=== PATIENT | male | born 1940 | race Caucasian/White ===

== ENCOUNTER → 2016-07-06 | Outpatient (CLI) | payer MEDICARE, OTHER ==
[~2016-07-06] MED LIST: /MOXI40TA; /PANT40TA; /WARF25TA; ACET500C; ADVI200T PO; ALDA25TA PO; ALEV220C2 PO; BACT800T5 PO; CENTTAB47 PO; CIPR500T89 PO; COLA100C2; DYAZ37.5; FISH120012 PO; IBUP200C PO; NAPR220C PO; OXYC-517 PO; PERC5TAB8; PROT1TAB2 PO; ROXI1TAB2 PO; SENO8.6T10 PO; TRIC145T19; TYLE650T25 PO; VALS1TAB47 PO; VALS80CA
--- NOTE | 2016-07-06 10:01 | REP ---
CT CHEST WITHOUT CONTRAST: 07/06/2016 INDICATION: Cough. COMPARISON: PA and lateral chest 05/09/2016 at [facility], CT abdomen and pelvis 09/13/2015 which includes a small portion of the lung bases in field of view. Compared to CT abdomen and pelvis 08/02/2014. TECHNIQUE: 3 mm spiral axial sections performed through the chest without contrast. FINDINGS: The thoracic aorta is without aneurysm. There are a few small nonspecific mediastinal and hilar nodes. There is moderate elevation of the right hemidiaphragm with mild progression. Soft tissue 13 x 10 mm opacity within the inferior aspect of the right middle lobe, image 56, series 201 represents interval change. This could represent scarring versus developing pulmonary nodule. Small amount of atelectatic changes are seen within the right lower lobe. There are no pleural effusions or lung consolidation. There is a 5 mm hypodense focus within the posterior dome right lobe of liver, image 62, series 202 and is unchanged. The visualized portions of the spleen, pancreas within normal limits. The gallbladder is partially contracted, without stones, wall thickening or biliary dilatation. The right adrenal is normal. Postsurgical changes are seen within the region of the left adrenal and the left renal fossa consistent with prior nephrectomy for renal cancer. There is ectasia within the abdominal aorta measuring 2.6 cm AP by 2.5 cm transverse dimension. Postsurgical changes consistent with prior wedge resection seen within the superolateral right kidney at the site of a previous complex nodule. The visualized portions of the stomach, small bowel and colon within normal limits. There are no lytic or blastic lesions of bone. IMPRESSION: 1. Prior left nephrectomy as well as wedge resection of the right kidney for renal lesion.Pt. has history renal cell cancer. 2. Stable 5 mm hypodense focus within the posterior right dome of liver, image 63, series, 202. Interval followup is recommended. 3. 13 x 10 mm irregular opacity in medial aspect right middle lobe,. Ddx ncludes atelectasis/ scarring or developing nodule. Recommend follow up CT chest in 3 months . MTDD
== END ==
LOC: M RAD 08:47
PROVIDERS: ATTEND Physician Assistant Medical
DX: R05 Cough (principal); R93.8 Abnormal findings on diagnostic imaging of other specified body structures

== ENCOUNTER → 2016-08-10 | Outpatient (CLI) | payer MEDICARE, OTHER ==
--- NOTE | 2016-08-10 14:19 | REP ---
CHEST FLUOROSCOPY SNIFF TEST: 08/10/2016. Clinical history: Elevated right diaphragm. Fluoroscopic evaluation of the diaphragm movement performed. The patient was upright with AP fluoroscopy. There is appropriate movement of the left diaphragm. The right diaphragm is elevated but did not move with inspiration or expiration. There was no paradoxical movement of that elevated right diaphragm. Fluoroscopy time 24 seconds. Signed by Elvin Dorman MD 08/10/2016 05:21 P
== END ==
LOC: M RAD 12:32
PROVIDERS: ATTEND Internal Medicine Pulmonary Disease
DX: R91.8 Other nonspecific abnormal finding of lung field (principal); J98.6 Disorders of diaphragm

== ENCOUNTER → 2016-10-10 | Outpatient (CLI) | payer MEDICARE, OTHER ==
--- NOTE | 2016-10-10 13:05 | REP ---
CT of the chest without IV contrast for follow up of right middle lobe nodule: Comparisons are the chest CT dated 07/06/[address] of the abdomen and pelvis dated 08/02/2014. On 07/06/[address] there was a nodule with irregular margins in the medial segment right middle lobe. On the study today this nodule is no longer present, compatible with transient atelectasis. There are no other lung nodules or masses. There are no infiltrates or effusions. There is no mediastinal adenopathy. No axillary adenopathy. In the absence of IV contrast the study is insensitive for hilar adenopathy. The unenhanced thoracic aorta is unremarkable. Cardiac size normal. There is no pericardial effusion. In the upper abdomen there was a 5 mm hypodense nodule posteriorly in the dome of the liver on both prior studies. The nodule today is isodense with the hepatic parenchyma and cannot be identified. Impression: The right middle lobe lung nodule identified 07/06/2016 is no longer present, compatible with transient atelectasis. The previous hypodense 5 mm nodule in the dome of the liver on the prior studies cannot be identified today and is isodense with the hepatic parenchyma. Signed by Jj Vides MD 10/10/2016 12:56 P
== END ==
LOC: M RAD 10:24
PROVIDERS: ATTEND Physician Assistant Medical
DX: R05 Cough (principal)

== ENCOUNTER 2016-10-31 08:52 | Emergency (ER) | payer MEDICARE, OTHER ==
[~2016-10-31] VITALS: Ht 170.2 cm; Wt 64.4 kg
[2016-10-31] MEDS ORDERED: ACETAMINOPHEN 325 MG TAB PO ONE (10:00)
--- NOTE | 2016-10-31 10:24 | REP ---
Clinical: Trauma. Technique: Frontal view of the chest with multiple views of the left hemithorax. Findings: Frontal view of the chest demonstrates no acute cardiopulmonary process. Multiple views of the left hemithorax demonstrates no obvious acute rib fracture or pathology. Impression: Normal left rib series. No obvious acute rib fracture identified. Signed by Adam Medrano MD 10/31/2016 10:16 A
[2016-10-31 10:44] VITALS: BP 128/79
== END 2016-10-31 10:44 | disposition home or self-care (01) ==
LOC: M ED 10:09
DX: S20.212A Contusion of left front wall of thorax, initial encounter (principal); V03.00XA Pedestrian on foot injured in collision with car, pick-up truck or van in nontraffic accident, initial encounter; Y92.89 Other specified places as the place of occurrence of the external cause; Y93.89 Activity, other specified; Y99.8 Other external cause status; Z79.899 Other long term (current) drug therapy; Z88.1 Allergy status to other antibiotic agents

== ENCOUNTER → 2017-07-31 | Outpatient (CLI) | payer MEDICARE, OTHER | LOC: M WUC 13:51 | DX: R05 Cough (principal); J11.1 Influenza due to unidentified influenza virus with other respiratory manifestations | CPT/HCPCS: 71046 ==

== ENCOUNTER → 2017-10-01 | Outpatient (CLI) | payer MEDICARE, OTHER ==
[2017-10-01 19:06] LABS: APPEARANCE, URINE CLEAR (CLEAR); BACTERIA, URINE AUTO NEGATIVE (NEGATIVE); BILIRUBIN, URINE AUTO NEGATIVE (NEGATIVE); BLOOD, URINE BLOOD NEGATIVE (NEGATIVE); COLOR, URINE YELLOW (YELLOW); GLUCOSE, URINE (UA) AUTO NEGATIVE (NEGATIVE); KETONE, URINE AUTO NEGATIVE (NEGATIVE); LEUKOCYTE ESTERASE, URINE AUTO TRACE (NEGATIVE); NITRITE, URINE AUTO NEGATIVE (NEGATIVE); PROTEIN, URINE AUTO NEGATIVE (NEGATIVE); RBC, URINE AUTO 0 /HPF (0-3); SPECIFIC GRAVITY URINE AUTO 1.023 (1.002-1.035); SQUAMOUS EPITHELIAL CELL UR AU 0 /HPF (0-6); UROBILINOGEN, URINE AUTO 0.2 mg/dL (0.0-2.0); WBC, URINE AUTO 1 /HPF (0-3)
[2017-10-04 00:07] LABS: PSA TOTAL 3.7 ng/mL (0.0-4.0)
== END ==
LOC: M SMT 11:55
DX: C64.9 Malignant neoplasm of unspecified kidney, except renal pelvis (principal); Z12.5 Encounter for screening for malignant neoplasm of prostate
CPT/HCPCS: 84154

== ENCOUNTER → 2017-10-02 | Outpatient (CLI) | payer MEDICARE, OTHER | LOC: M RAD 17:11 | DX: C64.2 Malignant neoplasm of left kidney, except renal pelvis (principal); C64.1 Malignant neoplasm of right kidney, except renal pelvis; K57.30 Diverticulosis of large intestine without perforation or abscess without bleeding; J98.4 Other disorders of lung; R05 Cough; R06.2 Wheezing; Z90.5 Acquired absence of kidney | CPT/HCPCS: 71250 ==

== ENCOUNTER → 2017-10-15 | Outpatient (CLI) | payer MEDICARE, OTHER ==
[~2017-10-15] MED LIST changes: -/MOXI40TA; -/PANT40TA; -/WARF25TA; -ACET500C; -ADVI200T PO; -ALDA25TA PO; -ALEV220C2 PO; -BACT800T5 PO; -CENTTAB47 PO; -CIPR500T89 PO; -COLA100C2; -DYAZ37.5; -FISH120012 PO; -IBUP200C PO; +ISOVUE-370 76% 100ML VIAL (Q9967) As Ordered; -NAPR220C PO; -OXYC-517 PO; -PERC5TAB8; -PROT1TAB2 PO; -ROXI1TAB2 PO; -SENO8.6T10 PO; -TRIC145T19; -TYLE650T25 PO; -VALS1TAB47 PO; -VALS80CA
== END ==
LOC: M RAD 09:12
DX: C64.1 Malignant neoplasm of right kidney, except renal pelvis (principal); C64.2 Malignant neoplasm of left kidney, except renal pelvis; R93.41 Abnormal radiologic findings on diagnostic imaging of renal pelvis, ureter, or bladder
CPT/HCPCS: Q9967

== ENCOUNTER → 2017-10-16 | Outpatient (CLI) | payer MEDICARE, OTHER | LOC: M RAD 13:56 | DX: J98.6 Disorders of diaphragm (principal) | CPT/HCPCS: 76000 ==

== ENCOUNTER → 2017-10-28 | Outpatient (CLI) | payer MEDICARE, OTHER | LOC: M WUC 11:13 | DX: J44.1 Chronic obstructive pulmonary disease with (acute) exacerbation (principal) | CPT/HCPCS: 71046 ==

== ENCOUNTER → 2017-11-27 | Outpatient (REF) | payer MEDICARE, OTHER | LOC: M SFHCPLAZ 17:11 | DX: J47.1 Bronchiectasis with (acute) exacerbation (principal) | CPT/HCPCS: 87205 ==

== ENCOUNTER → 2017-12-13 | Outpatient (REF) | payer MEDICARE, OTHER | LOC: M SFHCPLAZ 09:03 | DX: E78.5 Hyperlipidemia, unspecified (principal); R73.01 Impaired fasting glucose ==

== ENCOUNTER → 2018-01-20 | Outpatient (CLI) | payer MEDICARE, OTHER | LOC: M WUC 09:36 | DX: R05 Cough (principal); J44.9 Chronic obstructive pulmonary disease, unspecified | CPT/HCPCS: 71046 ==

== ENCOUNTER → 2018-07-01 | Outpatient (CLI) | payer MEDICARE, OTHER ==
[~2018-07-01] MED LIST changes: +/MOXI40TA; +/PANT40TA; +/WARF25TA; +ACET500C; +ADVI200T PO; +ALEV220C2 PO; +BACT800T5 PO; +CENTTAB47 PO; +CIPR-249 PO; +COLA100C2; +DYAZ37.5; +FISH120012 PO; +IBUP200C25 PO; -ISOVUE-370 76% 100ML VIAL (Q9967) As Ordered; +NAPR220C PO; +OXYC-517 PO; +PERC5TAB8; +PROT1TAB2 PO; +ROXI1TAB2 PO; +SENO8.6T10 PO; +SPIR1TAB34 PO; +TRIC145T19; +TYLE650T25 PO; +VALS1TAB47 PO; +VALS80CA
--- NOTE | 2018-07-01 14:57 | REP ---
Chest two views HISTORY: Diaphragm disorder Comparison: 01/20/2018 There is elevation of the right hemidiaphragm. Linear densities are present in the lower lobes consistent with atelectasis or scar. The heart is normal in size. The pulmonary vasculature is normal in appearance. The bony structure is intact. There is an old compression fracture of a lower thoracic vertebral body. IMPRESSION: Bibasilar atelectasis or scar. Electronically Signed by Dorian Cates MD 07/01/2018 02:48 P
== END ==
LOC: M SMT 11:28
PROVIDERS: ATTEND Internal Medicine Pulmonary Disease
DX: J98.6 Disorders of diaphragm (principal)

== ENCOUNTER 2018-07-26 10:48 | Emergency (ER) | payer MEDICARE, OTHER ==
[~2018-07-26] VITALS: Ht 170.2 cm; Wt 63.6 kg
[2018-07-26 10:49] VITALS: BP 147/85
[2018-07-26] MEDS ORDERED: LOSA50TA88 (10:54)
[2018-07-26] MEDS ORDERED: PRAV20TA2 (10:54)
--- NOTE | 2018-07-26 11:45 | REP ---
UNILATERAL LEFT RIBS, PA CHEST, FIVE VIEWS: HISTORY: Trauma. COMPARISON: 07/01/2018. There is elevation of the right hemidiaphragm. Linear densities are present in the right lower lobe consistent with atelectasis or scar. The left lung is clear. The bony structure is intact. IMPRESSION: Right lower lobe atelectasis or scar. Electronically Signed by Dorian Cates MD 07/26/2018 11:47 A
== END 2018-07-26 11:48 | disposition home or self-care (01) ==
LOC: M ED 10:48
DX: S23.41XA Sprain of ribs, initial encounter (principal); W01.0XXA Fall on same level from slipping, tripping and stumbling without subsequent striking against object, initial encounter; Y92.9 Unspecified place or not applicable; Y93.9 Activity, unspecified; Y99.9 Unspecified external cause status; K21.9 Gastro-esophageal reflux disease without esophagitis; I10 Essential (primary) hypertension; Z79.899 Other long term (current) drug therapy; Z88.1 Allergy status to other antibiotic agents

== ENCOUNTER → 2018-10-09 | Outpatient (REF) | payer MEDICARE, OTHER ==
[~2018-10-09] MED LIST changes: -/MOXI40TA; -/PANT40TA; -/WARF25TA; +AVEL1TAB2; +COUM1TAB18; +LOSA50TA88; +PRAV20TA2; +PROT1TAB2; -VALS1TAB47 PO; +VALS1TAB67 PO
[2018-10-09 13:29] LABS: HEMATOCRIT 38.6 % (42.0-52.0); HEMOGLOBIN 12.9 g/dl (13.5-17.5); MEAN CORPUSCULAR HEMOGLOBIN 29.7 pg (27.0-33.0); MEAN CORPUSCULAR HGB CONC 33.4 g/dl (32.0-36.5); MEAN CORPUSCULAR VOLUME 88.9 fl (80.0-96.0); PLATELET COUNT, AUTOMATED 420 10^3/uL (150-450); RED BLOOD COUNT 4.34 10^6/uL (4.30-6.10); WHITE BLOOD COUNT 17.5 10^3/uL (4.0-10.0)
[2018-10-09 13:59] LABS: ALBUMIN 3.4 GM/DL (3.2-5.2); ALT/SGPT 48 U/L (12-78); BILIRUBIN,TOTAL 0.7 MG/DL (0.2-1.0); BLOOD UREA NITROGEN 38 MG/DL (7-18); CALCIUM LEVEL 8.6 MG/DL (8.8-10.2); CARBON DIOXIDE LEVEL 20 MEQ/L (21-32); CHLORIDE LEVEL 105 MEQ/L (98-107); CHOLESTEROL LEVEL 178 MG/DL (<200); CHOLESTEROL RISK RATIO 3.632 (<5); CREATININE FOR GFR 1.52 MG/DL (0.70-1.30); GLOMERULAR FILTRATION RATE 47.2 (>35); GLUCOSE, FASTING 104 MG/DL (70-100); HDL CHOLESTEROL 49 MG/DL (>40); MAGNESIUM LEVEL 2.2 MG/DL (1.8-2.4); NON-HDL-C 129 MG/DL; POTASSIUM SERUM 4.3 MEQ/L (3.5-5.1); PTH INTACT 88.1 PG/ML (18.5-88.0); SODIUM LEVEL 137 MEQ/L (136-145); TOTAL 25(OH) VITAMIN D 22.4 NG/ML (30.0-100.0); TOTAL PROTEIN 6.9 GM/DL (6.4-8.2); TRIGLYCERIDES LEVEL 446 MG/DL (<150)
[2018-10-09 14:41] LABS: LYMPHOCYTES 9 % (16-52); METAMYELOCYTES 2 % (0-0); MONOCYTES 6 % (0-8); MYELOCYTES 2 % (0-0); NEUTROPHILS 80 % (35-75)
[2018-10-09 14:42] LABS: PLATELET ESTIMATE NORMAL (NORMAL)
[2018-10-09 14:44] LABS: ANISOCYTOSIS 1+
[2018-10-09 15:46] LABS: HEMOGLOBIN A1c 6.3 %
== END ==
LOC: M SFHCPLAZ 11:17
PROVIDERS: ATTEND Nurse Practitioner Family
DX: R73.01 Impaired fasting glucose (principal); I10 Essential (primary) hypertension; E78.5 Hyperlipidemia, unspecified; Z12.5 Encounter for screening for malignant neoplasm of prostate; E55.9 Vitamin D deficiency, unspecified
CPT/HCPCS: 36415; 80053; 80061; 82306; 83036; 83525; 83735; 83970; 85025; G0103; G0463

== ENCOUNTER → 2018-10-28 | Outpatient (REF) | payer MEDICARE, OTHER | LOC: M LAB REF 16:29 | PROVIDERS: ATTEND Physician Assistant | DX: R35.0 Frequency of micturition (principal) ==

== ENCOUNTER → 2019-12-12 | Outpatient (CLI) | payer MEDICARE, OTHER ==
--- NOTE | 2019-12-12 10:32 | REP ---
CHEST X-RAY: TWO VIEWS. HISTORY: Stage III chronic kidney disease. Comparison chest radiograph is from July 26, 2018. FINDINGS: There is moderate elevation of the right hemidiaphragm, unchanged. The lungs are well inflated and clear. The pleural angles are sharp. Heart size is normal. There are degenerative changes in the thoracic spine, and there is mild wedging in two vertebral body levels, one in the upper thoracic spine and the other in the lower thoracic spine. These are unchanged from comparison radiographs January 20, 2018. IMPRESSION: Chronic elevation right hemidiaphragm. Otherwise no active cardiopulmonary disease. Electronically Signed by John Solis MD 12/12/2019 11:03 A
== END ==
LOC: M RAD 08:43
PROVIDERS: ATTEND Nurse Practitioner Women's Health
DX: N18.3 Chronic kidney disease, stage 3 (moderate) (principal); Z85.528 Personal history of other malignant neoplasm of kidney; M51.34 Other intervertebral disc degeneration, thoracic region

== ENCOUNTER → 2019-12-16 | Outpatient (CLI) | payer MEDICARE, OTHER ==
--- NOTE | 2019-12-16 11:11 | REP ---
Clinical: Bronchitis. Technique: PA and lateral. Comparison: 12/12/2019. Findings: Chronic elevation to the right hemidiaphragm again noted. Lung casanova are clear and without focal consolidation, effusion, or pneumothorax. Mediastinum and cardiac silhouette are normal. Skeletal structures are stable. Impression: Stable chronic changes. No acute cardiopulmonary process. Electronically Signed by Adam Medrano MD 12/16/2019 11:03 A
== END ==
LOC: M RAD 10:49
PROVIDERS: ATTEND Internal Medicine Pulmonary Disease
DX: J47.9 Bronchiectasis, uncomplicated (principal)

== ENCOUNTER → 2019-12-17 | Outpatient (CLI) | payer MEDICARE, OTHER ==
[~2019-12-17] MED LIST changes: +ISOVUE-370 76% 100ML VIAL As Ordered ONE
--- NOTE | 2019-12-17 13:28 | REP ---
Clinical: History of renal cell carcinoma and stage III chronic renal disease. Technique: Axial contrast enhanced images of the abdomen and pelvis from the lung bases to the pubic symphysis using 100 ml Isovue 370 intravenous contrast material along with precontrast and delayed images of the abdomen. Coronal and sagittal re-formations obtained. Comparison: 10/15/2017, 08/02/2014. Findings: The liver demonstrates a generalized coarsened low density echo texture with subtle scattered nodularity raising the possibility of underlying hepatocellular disease. Two hyperdense lesions in the right lobe approaching the dome are again identified and likely represent benign hemangiomas. Spleen, pancreas, gallbladder, right adrenal gland are normal. The right kidney demonstrates lateral cortical scarring and subcentimeter hypodensity compatible with cyst essentially unchanged from prior examination. Left renal fossa is grossly unremarkable and without obvious recurrence. The enteric system is without obstruction or acute inflammatory process. Pelvis demonstrates stable appearance to the bladder and prostate gland with prostatic calcifications suggested. Further evaluation of the pelvis is significantly limited due to metallic beam hardening artifact from left replacement. No ascites. No free air. No obvious intraperitoneal or retroperitoneal adenopathy. Atherosclerotic changes of the aorta and vasculature noted without aneurysm or dissection. Musculoskeletal structures demonstrate degenerative changes without acute osseous abnormality. Impression: 1. Heterogeneous coarsened appearance to the liver with subtle scattered nodularity raises the possibility of underlying hepatocellular disease and correlation may be warranted. Hyperdense lesions in the right lobe are again identified and likely represent benign hemangiomas. 2. No evidence for recurrence or metastatic disease related to left renal carcinoma and associated left nephrectomy. 3. Changes to the right kidney as described above remains stable including mild cortical scarring and small cyst. Electronically Signed by Adam Mderano MD 12/17/2019 01:19 P
== END ==
LOC: M RAD 12:41
PROVIDERS: ATTEND Nurse Practitioner Women's Health
DX: N18.3 Chronic kidney disease, stage 3 (moderate) (principal); Z85.528 Personal history of other malignant neoplasm of kidney
CPT/HCPCS: 74178; Q9967

== ENCOUNTER 2020-05-21 13:42 | Emergency (ER) | payer MEDICARE, OTHER ==
[~2020-05-21] VITALS: Ht 170.2 cm; Wt 28.3 kg
[~2020-05-21 13:42] MED LIST changes: -CEFD1CAP8 PO
[2020-05-21 13:43] VITALS: BP 131/64
[2020-05-21 15:07] LABS: RSV AMPLIFICATION NEGATIVE (NEGATIVE)
--- NOTE | 2020-05-21 15:44 | REP ---
INDICATION: headache. COMPARISON: None. TECHNIQUE: Helical scanning is acquired. 5 mm axial images were reformatted. Coronal MPR images were generated. FINDINGS: On bone window settings there is mucosal thickening affecting the ethmoid air cells bilaterally. Some mucosal thickening is seen in the sphenoid sinuses as well. Bony calvarium is intact. On soft tissue window settings, there is mild generalized volume loss. Physiologic calcification is noted in the basal ganglia bilaterally. There is no evidence of intracranial hemorrhage. No mass, extra-axial fluid collection, or midline shift is observed. No acute infarction is seen. IMPRESSION: Mild generalized volume loss. Ethmoid and sphenoid sinus mucosal changes. Otherwise negative CT brain.. <Electronically signed by Faheem Solis > 05/21/20 [id number]
[2020-05-21] MEDS ORDERED: CEFD1CAP8 PO (16:58)
[2020-05-21] MEDS ORDERED: ACETAMINOPHEN 500 MG TAB PO ONE (17:00)
[2020-05-21] MEDS ORDERED: CEFDINIR 300 MG CAP (OMNICEF) PO ONE (17:15)
--- NOTE | 2020-05-22 10:21 | ECGEPIP ---
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
== END 2020-05-21 18:15 | disposition home or self-care (01) ==
LOC: M ED 13:42
DX: J32.9 Chronic sinusitis, unspecified (principal); I12.9 Hypertensive chronic kidney disease with stage 1 through stage 4 chronic kidney disease, or unspecified chronic kidney disease; N18.9 Chronic kidney disease, unspecified; R73.03 Prediabetes; E78.5 Hyperlipidemia, unspecified; Z79.899 Other long term (current) drug therapy; Z88.1 Allergy status to other antibiotic agents
CPT/HCPCS: 36415; 70450; 71046; 80053; 80061; 82306; 83036; 83605; 85025; 86140; 87040; 87631; 93005; 99284; G0463; U0003

== ENCOUNTER → 2020-05-21 | Outpatient (REF) | payer MEDICARE, OTHER ==
[~2020-05-21] MED LIST changes: +CEFD1CAP8 PO; -ISOVUE-370 76% 100ML VIAL As Ordered ONE
[2020-05-21 11:48] LABS: BASO # 0.1 10^3/uL (0.0-0.2); BASO % 0.3 % (0.0-1.0); EOS # 0.1 10^3/uL (0.0-0.5); EOS % 0.3 % (0.0-3.0); HEMATOCRIT 39.3 % (42.0-52.0); HEMOGLOBIN 12.8 g/dl (13.5-17.5); LYMPH # 0.9 10^3/uL (1.5-5.0); LYMPH % 5.3 % (24.0-44.0); MEAN CORPUSCULAR HEMOGLOBIN 27.6 pg (27.0-33.0); MEAN CORPUSCULAR HGB CONC 32.6 g/dl (32.0-36.5); MEAN CORPUSCULAR VOLUME 84.7 fl (80.0-96.0); MONO # 1.5 10^3/uL (0.0-0.8); MONO % 8.9 % (0.0-5.0); NEUTROPHILS # 14.6 10^3/uL (1.5-8.5); NEUTROPHILS % 84.3 % (36.0-66.0); PLATELET COUNT, AUTOMATED 334 10^3/uL (150-450); RED BLOOD COUNT 4.64 10^6/uL (4.30-6.10); WHITE BLOOD COUNT 17.3 10^3/uL (4.0-10.0)
[2020-05-21 12:20] LABS: HEMOGLOBIN A1c 5.6 %
[2020-05-21 12:22] LABS: ALBUMIN 3.3 GM/DL (3.2-5.2); BILIRUBIN,TOTAL 0.9 MG/DL (0.2-1.0); C REACTIVE PROTEIN QUANTITATIV 16.1 MG/DL (0.00-0.30); CALCIUM LEVEL 8.6 MG/DL (8.8-10.2); CHOLESTEROL RISK RATIO 3.613 (<5); CREATININE FOR GFR 1.68 MG/DL (0.70-1.30); POTASSIUM SERUM 3.8 MEQ/L (3.5-5.1); TOTAL PROTEIN 7.1 GM/DL (6.4-8.2)
[2020-05-21 12:30] LABS: TOTAL 25(OH) VITAMIN D 30.3 NG/ML (30.0-100.0)
== END ==
LOC: M PLALAB 10:51
PROVIDERS: ATTEND Nurse Practitioner Family
DX: R06.02 Shortness of breath (principal); I10 Essential (primary) hypertension; R73.01 Impaired fasting glucose; E78.5 Hyperlipidemia, unspecified; E55.9 Vitamin D deficiency, unspecified; Z20.828 Contact with and (suspected) exposure to other viral communicable diseases
CPT/HCPCS: 36415; 80053; 80061; 82306; 83036; 83605; 85025; 86140; U0003

== ENCOUNTER → 2020-05-21 | Outpatient (CLI) | payer MEDICARE, OTHER ==
--- NOTE | 2020-05-21 12:35 | REPPI ---
INDICATION: R06.02 SHORNTESS OF BREATH. COMPARISON: 12/16/2019 and 12/12/2019 TECHNIQUE: PA and lateral views FINDINGS: The superior mediastinal structures are midline. The cardiac silhouette is unremarkable in size, shape, and position. The diaphragmatic surfaces of the lungs are regular, and the costophrenic angles are clear. The pulmonary casanova are clear. The imaged osseous structures are unchanged. There is persistent elevation of the diaphragmatic surface of the right lung. IMPRESSION: There is no acute cardiopulmonary disease. Stable appearing chronic changes. <Electronically signed by Shar Snyder > 05/21/20 [id number]
== END ==
LOC: M PLAIMG 10:51
PROVIDERS: ATTEND Nurse Practitioner Family
DX: R06.02 Shortness of breath (principal)

== ENCOUNTER → 2020-05-28 | Outpatient (REF) | payer MEDICARE, OTHER ==
[~2020-05-28] MED LIST changes: +CEFD1CAP8 PO
[2020-05-28 15:44] LABS: BASO # 0.1 10^3/uL (0.0-0.2); BASO % 0.3 % (0.0-1.0); EOS # 0.2 10^3/uL (0.0-0.5); HEMATOCRIT 38.4 % (42.0-52.0); HEMOGLOBIN 12.5 g/dl (13.5-17.5); LYMPH # 0.9 10^3/uL (1.5-5.0); LYMPH % 3.7 % (24.0-44.0); MEAN CORPUSCULAR HEMOGLOBIN 27.7 pg (27.0-33.0); MEAN CORPUSCULAR HGB CONC 32.6 g/dl (32.0-36.5); MEAN CORPUSCULAR VOLUME 85.1 fl (80.0-96.0); MONO # 1.3 10^3/uL (0.0-0.8); MONO % 5.4 % (0.0-5.0); NEUTROPHILS # 20.2 10^3/uL (1.5-8.5); NEUTROPHILS % 86.9 % (36.0-66.0); PLATELET COUNT, AUTOMATED 808 10^3/uL (150-450); RED BLOOD COUNT 4.51 10^6/uL (4.30-6.10); WHITE BLOOD COUNT 23.3 10^3/uL (4.0-10.0)
[2020-05-28 16:17] LABS: ALBUMIN 2.6 GM/DL (3.2-5.2); ALT/SGPT 99 U/L (12-78); BILIRUBIN,TOTAL 0.9 MG/DL (0.2-1.0); BLOOD UREA NITROGEN 31 MG/DL (7-18); CALCIUM LEVEL 8.7 MG/DL (8.8-10.2); CARBON DIOXIDE LEVEL 32 MEQ/L (21-32); CHLORIDE LEVEL 92 MEQ/L (98-107); CREATININE FOR GFR 1.56 MG/DL (0.70-1.30); FREE T4 1.47 NG/DL (0.76-1.46); GLOMERULAR FILTRATION RATE 45.7 (>35); GLUCOSE, FASTING 118 MG/DL (70-100); POTASSIUM SERUM 3.5 MEQ/L (3.5-5.1); SODIUM LEVEL 133 MEQ/L (136-145); THYROID STIMULATING HORMONE 0.599 uIU/ML (0.358-3.740); TOTAL PROTEIN 7.1 GM/DL (6.4-8.2)
[2020-05-31 11:03] LABS: TOTAL PROTEIN 7.1 GM/DL (6.4-8.2)
[2020-05-31 11:55] LABS: ALBUMIN 3.09 GM/DL (3.29-5.55); ALBUMIN % 43.5 % (55.8-66.1); ALPHA-1-GLOBULIN % 10.2 % (2.9-4.9); ALPHA-1-GLOBULINS 0.72 GM/DL (0.17-0.41); ALPHA-2-GLOBULINS 1.24 GM/DL (0.42-0.99); ALPHA-2-GLOBULINS % 17.5 % (7.1-11.8); BETA-1-GLOBULINS % 5.7 % (4.7-7.2); BETA-2-GLOBULINS 0.45 GM/DL (0.19-0.55); BETA-2-GLOBULINS % 6.3 % (3.2-6.5); GAMMA GLOBULIN % 16.8 % (11.1-18.8); GAMMA GLOBULINS 1.19 GM/DL (0.65-1.58)
== END ==
LOC: M SFHCPLAZ 14:28
PROVIDERS: ATTEND Nurse Practitioner Family
DX: R63.4 Abnormal weight loss (principal); I10 Essential (primary) hypertension

== ENCOUNTER → 2020-06-03 | Outpatient (CLI) | payer MEDICARE, OTHER ==
[~2020-06-03] MED LIST changes: +GASTROGRAFIN SOLUTION 30ML (Q9963) As Ordered ONE; +ISOVUE-370 76% 100ML VIAL As Ordered ONE
--- NOTE | 2020-06-03 18:28 | REP ---
INDICATION: HX RENAL CA. COMPARISON: Comparison CT study December 17, 2019 and October 15, 2017.. TECHNIQUE: Contrast dose: 100 ML of Isovue [address] technique: Helical scanning is acquired and overlapping 1.5 mm and contiguous 3 mm axial images are reformatted. In addition, multiplanar re-formation images are generated in sagittal and coronal imaging projections. Dual phase post-contrast acquisition. Oral contrast was also administered. FINDINGS: Preliminary digital investment specialist radiograph shows surgical clips in the right lower abdomen and a normal bowel gas pattern. On axial CT images, the lung bases are clear. No pleural effusion or upper abdominal ascites is seen. Mitral annular calcification is observed. The right hemidiaphragm remains elevated. There are 2 small nodular areas of hypervascular enhancement in the dome of the liver in the right lobe unchanged from the October 15, 2017 study. These are 11 and 12 mm in greatest diameter. There consistent with benign hemangiomas. Liver and spleen are otherwise homogeneous in texture and are normal in size. No abnormality is noted in the gallbladder. No abnormality is noted in the pancreas. The left kidney is surgically absent. No renal bed mass or adenopathy is observed. There is some cortical scarring in the anterior cortex of the middle pole of the right kidney unchanged. No renal mass lesion is observed on the right. A normal right adrenal gland is noted unchanged. No retroperitoneal mass or adenopathy is seen. There are surgical clips in the right lower quadrant. Small and large bowel loops are unremarkable. There are dystrophic calcifications in the enlarged prostate. Bladder is intact. No bony destructive lesion is appreciated. A prosthetic left hip joint is seen. IMPRESSION: No evidence of mass or adenopathy. Status post prior left nephrectomy. Elevated right hemidiaphragm. There are 2 hypervascular liver nodule on postcontrast images in the right lobe unchanged from the October 15, 2017 prior study. These are consistent with benign hemangiomas. <Electronically signed by Faheem Solis > 06/03/20 [id number]
== END ==
LOC: M RAD 15:20
PROVIDERS: ATTEND Nurse Practitioner Family
DX: K76.89 Other specified diseases of liver (principal); Z85.528 Personal history of other malignant neoplasm of kidney
CPT/HCPCS: 74178; Q9963; Q9967

== ENCOUNTER → 2020-06-14 | Outpatient (REF) | payer MEDICARE, OTHER ==
[~2020-06-14] MED LIST changes: -GASTROGRAFIN SOLUTION 30ML (Q9963) As Ordered ONE; -ISOVUE-370 76% 100ML VIAL As Ordered ONE
[2020-06-14 13:27] LABS: BASO # 0.1 10^3/uL (0.0-0.2); BASO % 0.8 % (0.0-1.0); EOS # 0.5 10^3/uL (0.0-0.5); HEMATOCRIT 40.5 % (42.0-52.0); HEMOGLOBIN 13.2 g/dl (13.5-17.5); LYMPH # 2.1 10^3/uL (1.5-5.0); LYMPH % 16.3 % (24.0-44.0); MEAN CORPUSCULAR HEMOGLOBIN 28.9 pg (27.0-33.0); MEAN CORPUSCULAR HGB CONC 32.6 g/dl (32.0-36.5); MEAN CORPUSCULAR VOLUME 88.8 fl (80.0-96.0); MONO # 0.9 10^3/uL (0.0-0.8); MONO % 6.8 % (0.0-5.0); NEUTROPHILS % 70.7 % (36.0-66.0); PLATELET COUNT, AUTOMATED 558 10^3/uL (150-450); RED BLOOD COUNT 4.56 10^6/uL (4.30-6.10); WHITE BLOOD COUNT 12.7 10^3/uL (4.0-10.0)
[2020-06-14 14:11] LABS: ALBUMIN 3.1 GM/DL (3.2-5.2); ALT/SGPT 37 U/L (12-78); BILIRUBIN,DIRECT < 0.1 MG/DL (0.0-0.2); BILIRUBIN,TOTAL 0.6 MG/DL (0.2-1.0); BLOOD UREA NITROGEN 22 MG/DL (7-18); C REACTIVE PROTEIN QUANTITATIV 0.32 MG/DL (0.00-0.30); CALCIUM LEVEL 8.6 MG/DL (8.8-10.2); CARBON DIOXIDE LEVEL 27 MEQ/L (21-32); CHLORIDE LEVEL 101 MEQ/L (98-107); CREATININE FOR GFR 1.25 MG/DL (0.70-1.30); GLOMERULAR FILTRATION RATE 58.9 (>35); GLUCOSE, FASTING 131 MG/DL (70-100); POTASSIUM SERUM 4.3 MEQ/L (3.5-5.1); SODIUM LEVEL 135 MEQ/L (136-145); TOTAL PROTEIN 7.3 GM/DL (6.4-8.2)
== END ==
LOC: M PLALAB 11:16
PROVIDERS: ATTEND Nurse Practitioner Family
DX: D72.829 Elevated white blood cell count, unspecified (principal); R74.8 Abnormal levels of other serum enzymes; N18.30 Chronic kidney disease, stage 3 unspecified

== ENCOUNTER → 2020-10-18 | Outpatient (REF) | payer MEDICARE, OTHER ==
[2020-10-18 15:28] LABS: BASO # 0.1 10^3/uL (0.0-0.2); BASO % 0.6 % (0.0-1.0); EOS # 0.8 10^3/uL (0.0-0.5); EOS % 5.6 % (0.0-3.0); HEMATOCRIT 46.4 % (42.0-52.0); HEMOGLOBIN 15.5 g/dl (13.5-17.5); LYMPH # 2.1 10^3/uL (1.5-5.0); LYMPH % 14.4 % (24.0-44.0); MEAN CORPUSCULAR HEMOGLOBIN 28.4 pg (27.0-33.0); MEAN CORPUSCULAR HGB CONC 33.4 g/dl (32.0-36.5); MONO # 0.9 10^3/uL (0.0-0.8); MONO % 6.3 % (2.0-8.0); NEUTROPHILS # 10.6 10^3/uL (1.5-8.5); NEUTROPHILS % 71.9 % (36.0-66.0); PLATELET COUNT, AUTOMATED 360 10^3/uL (150-450); RED BLOOD COUNT 5.46 10^6/uL (4.30-6.10); WHITE BLOOD COUNT 14.7 10^3/uL (4.0-10.0)
[2020-10-18 16:04] LABS: ALBUMIN 4.2 GM/DL (3.2-5.2); ALT/SGPT 40 U/L (12-78); BILIRUBIN,TOTAL 0.6 MG/DL (0.2-1.0); BLOOD UREA NITROGEN 26 MG/DL (7-18); CALCIUM LEVEL 9.4 MG/DL (8.8-10.2); CARBON DIOXIDE LEVEL 28 MEQ/L (21-32); CHLORIDE LEVEL 103 MEQ/L (98-107); CHOLESTEROL LEVEL 246 MG/DL (<200); CHOLESTEROL RISK RATIO 5.857 (<5); CREATININE FOR GFR 1.41 MG/DL (0.70-1.30); GLOMERULAR FILTRATION RATE 51.2 (>35); GLUCOSE, FASTING 104 MG/DL (70-100); HDL CHOLESTEROL 42 MG/DL (>40); NON-HDL-C 204 MG/DL; POTASSIUM SERUM 4.3 MEQ/L (3.5-5.1); SODIUM LEVEL 136 MEQ/L (136-145); TOTAL PROTEIN 7.7 GM/DL (6.4-8.2); TRIGLYCERIDES LEVEL 714 MG/DL (<150)
[2020-10-18 16:10] LABS: PTH INTACT 82.8 PG/ML (18.5-88.0); TOTAL 25(OH) VITAMIN D 20.3 NG/ML (30.0-100.0)
[2020-10-18 19:05] LABS: HEMOGLOBIN A1c 5.4 %
== END ==
LOC: M SFHCPLAZ 13:31
PROVIDERS: ATTEND Nurse Practitioner Family
DX: E55.9 Vitamin D deficiency, unspecified (principal); I10 Essential (primary) hypertension; E78.5 Hyperlipidemia, unspecified; R73.01 Impaired fasting glucose

== ENCOUNTER → 2020-10-25 | Outpatient (CLI) | payer SELFPAY | LOC: M LABSMTC 13:53 | PROVIDERS: ATTEND Pediatrics | DX: Z20.822 Contact with and (suspected) exposure to COVID-19 (principal) ==

== ENCOUNTER → 2020-12-13 | Outpatient (CLI) | payer MEDICARE, OTHER ==
--- NOTE | 2020-12-13 10:46 | REP ---
INDICATION: H/O KIDNEY CA COMPARISON: 06/03/2020 TECHNIQUE: Axial noncontrast images from the lung bases to the pubic symphysis with coronal and sagittal reformations. This CT examination was performed using the following dose reduction techniques: Automated exposure control, adjustment of mA and/or kv according to the patient's size, and use of iterative reconstruction technique. FINDINGS: Lung bases are clear. Chronic elevation to the right hemidiaphragm again noted. Liver, spleen, pancreas, gallbladder, and right adrenal gland are normal. Patient is again noted to be status post left nephrectomy and partial right nephrectomy. Right kidney appears stable as compared with prior examination. Left renal fossa is normal. There is no evidence for obvious recurrence or metastatic disease by noncontrast evaluation. The enteric system is unremarkable and without obstruction or acute inflammatory process. Scattered diverticula noted without acute diverticulitis. Pelvis demonstrates relatively stable prostatomegaly with mass effect on the base of the bladder and parenchymal calcifications again noted. The bladder itself is otherwise unremarkable. No ascites. No free air. No adenopathy. No focal inflammatory stranding. Atherosclerotic changes to the aorta and vasculature again noted without aneurysm. Musculoskeletal structures are intact and without acute osseous abnormality. Evidence for prior left hip replacement. IMPRESSION: 1. Postsurgical changes including left nephrectomy and partial right nephrectomy stable compared to 2020. No evidence for recurrence or metastatic disease. 2. Prostatomegaly with mass effect on the base of the bladder. 3. Diverticulosis without acute diverticulitis. <Electronically signed by Adam Medrano > 12/13/20 [id number]
== END ==
LOC: M RAD 10:10
PROVIDERS: ATTEND Urology
DX: K57.90 Diverticulosis of intestine, part unspecified, without perforation or abscess without bleeding (principal); Z85.828 Personal history of other malignant neoplasm of skin

== ENCOUNTER → 2021-03-21 | Outpatient (CLI) | payer MEDICARE, OTHER ==
--- NOTE | 2021-03-21 11:33 | REP ---
INDICATION: BRONCHIECTASIS, UNCOMPLICATED COMPARISON: 05/21/2020 TECHNIQUE: PA and lateral. FINDINGS: The mediastinum and cardiac silhouette are normal. The lung casanova are clear and without acute consolidation, effusion, or pneumothorax. Chronic elevation to the right hemidiaphragm again noted. The skeletal structures are intact and normal. IMPRESSION: No acute cardiopulmonary process. Chronic elevation to the right hemidiaphragm. <Electronically signed by Adam Medrano > 03/21/21 [id number]
== END ==
LOC: M RAD 11:16
PROVIDERS: ATTEND Internal Medicine Pulmonary Disease
DX: J47.9 Bronchiectasis, uncomplicated (principal)

== ENCOUNTER → 2021-04-25 | Outpatient (CLI) | payer MEDICARE, OTHER ==
[2021-04-25 11:23] LABS: BASO # 0.1 10^3/uL (0.0-0.2); BASO % 0.5 % (0.0-1.0); EOS # 0.8 10^3/uL (0.0-0.5); HEMATOCRIT 45.5 % (42.0-52.0); HEMOGLOBIN 15.3 g/dl (13.5-17.5); LYMPH % 14.7 % (24.0-44.0); MEAN CORPUSCULAR HEMOGLOBIN 29.4 pg (27.0-33.0); MEAN CORPUSCULAR HGB CONC 33.6 g/dl (32.0-36.5); MEAN CORPUSCULAR VOLUME 87.5 fl (80.0-96.0); MONO # 0.9 10^3/uL (0.0-0.8); MONO % 6.8 % (2.0-8.0); NEUTROPHILS # 9.4 10^3/uL (1.5-8.5); NEUTROPHILS % 71.1 % (36.0-66.0); PLATELET COUNT, AUTOMATED 378 10^3/uL (150-450); WHITE BLOOD COUNT 13.3 10^3/uL (4.0-10.0)
[2021-04-25 11:31] LABS: HEMOGLOBIN A1c 5.2 %
[2021-04-25 11:50] LABS: ALBUMIN 3.9 GM/DL (3.2-5.2); BILIRUBIN,TOTAL 0.8 MG/DL (0.2-1.0); CALCIUM LEVEL 9.6 MG/DL (8.8-10.2); CHOLESTEROL RISK RATIO 3.72 (<5); CREATININE FOR GFR 1.4 MG/DL (0.70-1.30); GLOMERULAR FILTRATION RATE 51.7 (>35); POTASSIUM SERUM 4.3 MEQ/L (3.5-5.1); TOTAL 25(OH) VITAMIN D 43.6 NG/ML (30.0-100.0); TOTAL PROTEIN 7.5 GM/DL (6.4-8.2)
== END ==
LOC: M PLALAB 08:34
PROVIDERS: ATTEND Nurse Practitioner Family
DX: I10 Essential (primary) hypertension (principal); E55.9 Vitamin D deficiency, unspecified; E78.5 Hyperlipidemia, unspecified; R73.01 Impaired fasting glucose; Z12.5 Encounter for screening for malignant neoplasm of prostate; N18.30 Chronic kidney disease, stage 3 unspecified
CPT/HCPCS: 36415; 80053; 80061; 82306; 83036; 85025; G0103

== ENCOUNTER → 2021-07-28 | Outpatient (CLI) | payer MEDICARE, OTHER ==
[~2021-07-28] MED LIST changes: -CEFD1CAP8 PO; +CEFD300C41 PO; +LOSA50TA28; -LOSA50TA88
[2021-07-29 23:08] LABS: PSA FREE 1.51 ng/mL; PSA TOTAL 5.6 ng/mL (0.0-4.0)
== END ==
LOC: M PLALAB 11:57
PROVIDERS: ATTEND Urology
DX: R97.20 Elevated prostate specific antigen [PSA] (principal)

== ENCOUNTER → 2021-08-23 | Outpatient (CLI) | payer MEDICARE, OTHER ==
[2021-08-24 23:16] LABS: PSA % FREE 31.3 % (.); PSA FREE 1.94 ng/mL; PSA TOTAL 6.2 ng/mL (0.0-4.0)
== END ==
LOC: M PLALAB 10:42
PROVIDERS: ATTEND Urology
DX: R97.20 Elevated prostate specific antigen [PSA] (principal)

== ENCOUNTER → 2021-10-03 | Outpatient (CLI) | payer MEDICARE, OTHER ==
[2021-10-03 15:27] LABS: BASO # 0.1 10^3/uL (0.0-0.2); BASO % 0.7 % (0.0-1.0); EOS # 0.8 10^3/uL (0.0-0.5); EOS % 5.7 % (0.0-3.0); HEMOGLOBIN 14.6 g/dl (13.5-17.5); LYMPH # 1.6 10^3/uL (1.5-5.0); LYMPH % 11.5 % (24.0-44.0); MEAN CORPUSCULAR HEMOGLOBIN 30.2 pg (27.0-33.0); MEAN CORPUSCULAR VOLUME 88.8 fl (80.0-96.0); MONO # 0.9 10^3/uL (0.0-0.8); MONO % 6.5 % (2.0-8.0); NEUTROPHILS # 10.1 10^3/uL (1.5-8.5); NEUTROPHILS % 74.2 % (36.0-66.0); PLATELET COUNT, AUTOMATED 355 10^3/uL (150-450); RED BLOOD COUNT 4.84 10^6/uL (4.30-6.10); WHITE BLOOD COUNT 13.6 10^3/uL (4.0-10.0)
[2021-10-03 16:06] LABS: ALBUMIN 3.9 GM/DL (3.2-5.2); BILIRUBIN,TOTAL 0.6 MG/DL (0.2-1.0); CALCIUM LEVEL 9.3 MG/DL (8.8-10.2); CREATININE FOR GFR 1.28 MG/DL (0.70-1.30); GLOMERULAR FILTRATION RATE 57.1 (>35); POTASSIUM SERUM 4.4 MEQ/L (3.5-5.1); TOTAL PROTEIN 7.4 GM/DL (6.4-8.2)
== END ==
LOC: M PLALAB 12:22
PROVIDERS: ATTEND Family Medicine
DX: N18.30 Chronic kidney disease, stage 3 unspecified (principal); I12.9 Hypertensive chronic kidney disease with stage 1 through stage 4 chronic kidney disease, or unspecified chronic kidney disease

== ENCOUNTER → 2021-10-05 | Outpatient (REF) | payer MEDICARE, OTHER | LOC: M LAB REF 12:48 | PROVIDERS: ATTEND Internal Medicine Pulmonary Disease | DX: R05.1 Acute cough (principal); J47.9 Bronchiectasis, uncomplicated ==

== ENCOUNTER → 2021-10-31 | Outpatient (CLI) | payer MEDICARE, OTHER | LOC: M RAD 08:11 | PROVIDERS: ATTEND Family Medicine | DX: I10 Essential (primary) hypertension (principal); Z90.5 Acquired absence of kidney ==

== ENCOUNTER → 2022-01-02 | Outpatient (REF) | payer MEDICARE, OTHER | LOC: M SFHCPLAZ 16:50 | PROVIDERS: ATTEND Physician Assistant | DX: J01.90 Acute sinusitis, unspecified (principal) ==

== ENCOUNTER → 2022-02-21 | Outpatient (CLI) | payer MEDICARE, OTHER | LOC: M RAD 12:02 | PROVIDERS: ATTEND Internal Medicine Pulmonary Disease | DX: Z87.09 Personal history of other diseases of the respiratory system (principal) ==

== ENCOUNTER → 2022-05-24 | Outpatient (CLI) | payer MEDICARE, OTHER ==
[2022-05-24 15:04] LABS: ALBUMIN 3.9 G/DL (3.2-5.2); BILIRUBIN,TOTAL 0.7 MG/DL (0.3-1.2); CALCIUM LEVEL 9.4 MG/DL (8.3-10.6); CHOLESTEROL RISK RATIO 3.76 (<5); CREATININE FOR GFR 1.28 MG/DL (0.70-1.30); GLOMERULAR FILTRATION RATE 57.1 (>35); HDL CHOLESTEROL 41.2 MG/DL (>40); POTASSIUM SERUM 4.4 MMOL/L (3.5-5.1); TOTAL PROTEIN 7.3 G/DL (5.7-8.2)
[2022-05-24 15:05] LABS: BASO # 0.1 10^3/uL (0.0-0.2); BASO % 0.5 % (0.0-1.0); EOS # 0.7 10^3/uL (0.0-0.5); EOS % 5.6 % (0.0-3.0); HEMOGLOBIN 14.4 g/dl (13.5-17.5); LYMPH # 1.6 10^3/uL (1.5-5.0); LYMPH % 12.5 % (24.0-44.0); MEAN CORPUSCULAR HEMOGLOBIN 28.5 pg (27.0-33.0); MEAN CORPUSCULAR VOLUME 89.1 fl (80.0-96.0); MONO # 0.9 10^3/uL (0.0-0.8); MONO % 6.9 % (2.0-8.0); NEUTROPHILS # 9.3 10^3/uL (1.5-8.5); NEUTROPHILS % 73.9 % (36.0-66.0); PLATELET COUNT, AUTOMATED 371 10^3/uL (150-450); RED BLOOD COUNT 5.05 10^6/uL (4.30-6.10); TOTAL 25(OH) VITAMIN D 40.3 NG/ML (20.0-100.0); WHITE BLOOD COUNT 12.5 10^3/uL (4.0-10.0)
[2022-05-24 15:37] LABS: HEMOGLOBIN A1c 5.2 % (4.0-6.0)
== END ==
LOC: M PLALAB 09:09
PROVIDERS: ATTEND Nurse Practitioner Family
DX: E55.9 Vitamin D deficiency, unspecified (principal); I12.9 Hypertensive chronic kidney disease with stage 1 through stage 4 chronic kidney disease, or unspecified chronic kidney disease; R73.01 Impaired fasting glucose; N18.30 Chronic kidney disease, stage 3 unspecified; E78.5 Hyperlipidemia, unspecified

== ENCOUNTER → 2022-11-20 | Outpatient (CLI) | payer MEDICARE, OTHER ==
[2022-11-20 11:14] LABS: BASO # 0.1 10^3/uL (0.0-0.2); BASO % 0.8 % (0.0-1.0); EOS % 7.9 % (0.0-3.0); HEMATOCRIT 44.6 % (42.0-52.0); HEMOGLOBIN 14.8 g/dl (13.5-17.5); LYMPH # 1.8 10^3/uL (1.5-5.0); LYMPH % 14.6 % (24.0-44.0); MEAN CORPUSCULAR HEMOGLOBIN 28.8 pg (27.0-33.0); MEAN CORPUSCULAR HGB CONC 33.2 g/dl (32.0-36.5); MEAN CORPUSCULAR VOLUME 86.9 fl (80.0-96.0); MONO # 0.8 10^3/uL (0.0-0.8); MONO % 6.5 % (2.0-8.0); NEUTROPHILS # 8.4 10^3/uL (1.5-8.5); NEUTROPHILS % 69.2 % (36.0-66.0); PLATELET COUNT, AUTOMATED 376 10^3/uL (150-450); RED BLOOD COUNT 5.13 10^6/uL (4.30-6.10); WHITE BLOOD COUNT 12.1 10^3/uL (4.0-10.0)
[2022-11-20 11:27] LABS: HEMOGLOBIN A1c 5.5 % (4.0-6.0)
[2022-11-20 11:39] LABS: ALBUMIN 4.1 G/DL (3.2-5.2); ALKALINE PHOSPHATASE 106 U/L (46-116); ALT/SGPT 27 U/L (7.0-40); AST/SGOT 19 U/L (<34); BILIRUBIN,TOTAL 1.1 MG/DL (0.3-1.2); BLOOD UREA NITROGEN 19 MG/DL (9-23); CALCIUM LEVEL 8.6 MG/DL (8.3-10.6); CARBON DIOXIDE LEVEL 26 MMOL/L (20-31); CHLORIDE LEVEL 104 MMOL/L (98-107); CHOLESTEROL LEVEL 160 MG/DL (<200); CHOLESTEROL RISK RATIO 3.78 (<5); GLOMERULAR FILTRATION RATE > 60.0 (>35); GLUCOSE, FASTING 113 MG/DL (74-106); HDL CHOLESTEROL 42.3 MG/DL (>40); LDL CHOLESTEROL 70.5 MG/DL (<100); NON-HDL-C 117.7 MG/DL; POTASSIUM SERUM 4.3 MMOL/L (3.5-5.1); SODIUM LEVEL 137 MMOL/L (136-145); TOTAL PROTEIN 7.4 G/DL (5.7-8.2); TRIGLYCERIDES LEVEL 236 MG/DL (<150)
[2022-11-20 11:42] LABS: TOTAL 25(OH) VITAMIN D 51.6 NG/ML (20.0-100.0)
== END ==
LOC: M PLALAB 09:07
PROVIDERS: ATTEND Nurse Practitioner Family
DX: I10 Essential (primary) hypertension (principal); E78.5 Hyperlipidemia, unspecified; R73.01 Impaired fasting glucose; Z12.5 Encounter for screening for malignant neoplasm of prostate; E55.9 Vitamin D deficiency, unspecified; Z79.899 Other long term (current) drug therapy
CPT/HCPCS: 36415; 80053; 80061; 82306; 83036; 85025; G0103

== ENCOUNTER 2022-12-29 11:36 | Emergency (ER) | payer MEDICARE, OTHER ==
[~2022-12-29] VITALS: Ht 162.6 cm; Wt 61.1 kg
[2022-12-29 11:36] VITALS: TEMP 99.3
[2022-12-29] MEDS ORDERED: ASPIRIN 81MG CHEW TABLET PO ONE (12:20)
[2022-12-29 12:30] LABS: BASO # 0.1 10^3/uL (0.0-0.2); BASO % 0.5 % (0.0-1.0); EOS # 1.3 10^3/uL (0.0-0.5); EOS % 8.5 % (0.0-3.0); HEMATOCRIT 41.4 % (42.0-52.0); HEMOGLOBIN 13.8 g/dl (13.5-17.5); LYMPH # 1.4 10^3/uL (1.5-5.0); LYMPH % 8.9 % (24.0-44.0); MEAN CORPUSCULAR HEMOGLOBIN 28.9 pg (27.0-33.0); MEAN CORPUSCULAR HGB CONC 33.3 g/dl (32.0-36.5); MEAN CORPUSCULAR VOLUME 86.6 fl (80.0-96.0); MONO # 0.8 10^3/uL (0.0-0.8); MONO % 5.4 % (2.0-8.0); NEUTROPHILS # 11.9 10^3/uL (1.5-8.5); NEUTROPHILS % 75.9 % (36.0-66.0); PLATELET COUNT, AUTOMATED 390 10^3/uL (150-450); RED BLOOD COUNT 4.78 10^6/uL (4.30-6.10); WHITE BLOOD COUNT 15.6 10^3/uL (4.0-10.0)
[2022-12-29 12:47] LABS: INR 0.93; PROTHROMBIN TIME 12.7 SECONDS (12.5-14.5)
[2022-12-29 12:48] LABS: LIPASE 21 U/L (12-53); PARTIAL THROMBOPLASTIN TIME 30.9 SECONDS (24.8-34.2)
[2022-12-29 12:50] LABS: ALBUMIN 3.3 G/DL (3.2-5.2); ALKALINE PHOSPHATASE 116 U/L (46-116); ALT/SGPT 28 U/L (7.0-40); AST/SGOT 17 U/L (<34); BILIRUBIN,DIRECT 0.2 MG/DL (<0.4); BILIRUBIN,TOTAL 0.9 MG/DL (0.3-1.2); BLOOD UREA NITROGEN 16 MG/DL (9-23); CALCIUM LEVEL 9.1 MG/DL (8.3-10.6); CARBON DIOXIDE LEVEL 22 MMOL/L (20-31); CHLORIDE LEVEL 102 MMOL/L (98-107); CPK CREATINE PHOSPHOKINASE 140 U/L (46-171); CREATININE FOR GFR 1.18 MG/DL (0.70-1.30); GLOMERULAR FILTRATION RATE > 60.0 (>35); GLUCOSE, FASTING 166 MG/DL (74-106); SODIUM LEVEL 135 MMOL/L (136-145)
[2022-12-29 12:52] LABS: FREE T4 1.23 NG/DL (0.89-1.76); THYROID STIMULATING HORMONE 1.091 uIU/ML (0.55-4.78)
[2022-12-29 13:44] LABS: D-DIMER QUANT 461.97 ng/ml (<500)
[2022-12-29 14:22] LABS: CK-MB VALUE MASS 5.8 NG/ML (<3.6)
[2022-12-29 14:23] LABS: MB/CK RELATIVE INDEX 5.17 (< OR =4)
[2022-12-29 14:24] LABS: RSV AMPLIFICATION NEGATIVE (NEGATIVE)
[2022-12-29 16:09] LABS: MB/CK RELATIVE INDEX 1.42 (< OR =4)
[2022-12-29 16:35] VITALS: O2SAT 94
[2022-12-29 16:45] LABS: CK-MB VALUE MASS 2.1 NG/ML (<3.6)
[2022-12-29 16:46] LABS: MB/CK RELATIVE INDEX 1.98 (< OR =4)
[2022-12-29 18:00] VITALS: O2SAT 95
[2022-12-29 18:01] VITALS: BP 161/74
== END 2022-12-29 18:23 | disposition home or self-care (01) ==
LOC: M ED 11:36
DX: R07.9 Chest pain, unspecified (principal); I12.9 Hypertensive chronic kidney disease with stage 1 through stage 4 chronic kidney disease, or unspecified chronic kidney disease; E78.5 Hyperlipidemia, unspecified; K21.9 Gastro-esophageal reflux disease without esophagitis; N18.30 Chronic kidney disease, stage 3 unspecified; M19.90 Unspecified osteoarthritis, unspecified site; K62.5 Hemorrhage of anus and rectum; Z85.528 Personal history of other malignant neoplasm of kidney; Z87.442 Personal history of urinary calculi; Z88.1 Allergy status to other antibiotic agents; Z79.899 Other long term (current) drug therapy

== ENCOUNTER → 2023-01-10 | Outpatient (CLI) | payer MEDICARE, OTHER | LOC: M CARPUL 09:06 | PROVIDERS: ATTEND Nurse Practitioner Family | DX: R01.1 Cardiac murmur, unspecified (principal); I35.1 Nonrheumatic aortic (valve) insufficiency ==

== ENCOUNTER → 2023-03-07 | Outpatient (CLI) | payer MEDICARE, OTHER | LOC: M RAD 10:38 | PROVIDERS: ATTEND Internal Medicine Pulmonary Disease | DX: J47.1 Bronchiectasis with (acute) exacerbation (principal) ==

== ENCOUNTER → 2023-05-28 | Outpatient (CLI) | payer MEDICARE, OTHER ==
[~2023-05-28] MED LIST changes: +CEFD1CAP9 PO; -CEFD300C41 PO
[2023-05-28 11:05] LABS: BASO # 0.1 10^3/uL (0.0-0.2); BASO % 0.7 % (0.0-1.0); EOS # 0.5 10^3/uL (0.0-0.5); HEMATOCRIT 47.5 % (42.0-52.0); HEMOGLOBIN 15.7 g/dl (13.5-17.5); LYMPH # 2.6 10^3/uL (1.5-5.0); LYMPH % 17.1 % (24.0-44.0); MEAN CORPUSCULAR HEMOGLOBIN 29.4 pg (27.0-33.0); MEAN CORPUSCULAR HGB CONC 33.1 g/dl (32.0-36.5); MONO % 6.5 % (2.0-8.0); NEUTROPHILS # 10.7 10^3/uL (1.5-8.5); NEUTROPHILS % 70.3 % (36.0-66.0); PLATELET COUNT, AUTOMATED 393 10^3/uL (150-450); RED BLOOD COUNT 5.34 10^6/uL (4.30-6.10); WHITE BLOOD COUNT 15.2 10^3/uL (4.0-10.0)
[2023-05-28 11:42] LABS: ALBUMIN 3.7 G/DL (3.2-5.2); BILIRUBIN,TOTAL 1.2 MG/DL (0.3-1.2); CALCIUM LEVEL 9.3 MG/DL (8.3-10.6); CHOLESTEROL RISK RATIO 3.22 (<5); CREATININE FOR GFR 1.36 MG/DL (0.70-1.30); GLOMERULAR FILTRATION RATE 53.1 (>35); HDL CHOLESTEROL 53.9 MG/DL (>40); LDL CHOLESTEROL 65.1 MG/DL (<100); NON-HDL-C 120.1 MG/DL; POTASSIUM SERUM 4.2 MMOL/L (3.5-5.1); TOTAL 25(OH) VITAMIN D 61.5 NG/ML (20.0-100.0)
[2023-05-28 11:50] LABS: HEMOGLOBIN A1c 6.3 % (4.0-6.0)
== END ==
LOC: M PLALAB 08:38
PROVIDERS: ATTEND Nurse Practitioner Family
DX: E55.9 Vitamin D deficiency, unspecified (principal); I10 Essential (primary) hypertension; E78.5 Hyperlipidemia, unspecified; R73.01 Impaired fasting glucose; Z12.5 Encounter for screening for malignant neoplasm of prostate
CPT/HCPCS: 36415; 80053; 80061; 82306; 83036; 85025; G0103

== ENCOUNTER → 2023-11-23 | Outpatient (CLI) | payer MEDICARE, OTHER ==
[2023-11-23 11:40] LABS: BASO # 0.1 10^3/uL (0.0-0.2); BASO % 0.5 % (0.0-1.0); EOS # 0.4 10^3/uL (0.0-0.5); EOS % 2.8 % (0.0-3.0); LYMPH # 2.6 10^3/uL (1.5-5.0); LYMPH % 18.5 % (24.0-44.0); MEAN CORPUSCULAR HEMOGLOBIN 29.6 pg (27.0-33.0); MEAN CORPUSCULAR HGB CONC 33.3 g/dl (32.0-36.5); MEAN CORPUSCULAR VOLUME 88.8 fl (80.0-96.0); MONO % 7.1 % (2.0-8.0); NEUTROPHILS # 9.9 10^3/uL (1.5-8.5); NEUTROPHILS % 69.8 % (36.0-66.0); PLATELET COUNT, AUTOMATED 350 10^3/uL (150-450); RED BLOOD COUNT 5.07 10^6/uL (4.30-6.10); WHITE BLOOD COUNT 14.2 10^3/uL (4.0-10.0)
[2023-11-23 11:42] LABS: ALBUMIN 3.6 G/DL (3.2-5.2); CALCIUM LEVEL 9.4 MG/DL (8.3-10.6); CHOLESTEROL RISK RATIO 3.94 (<5); CREATININE FOR GFR 1.31 MG/DL (0.70-1.30); GLOMERULAR FILTRATION RATE 55.4 (>35); HDL CHOLESTEROL 46.1 MG/DL (>40); LDL CHOLESTEROL 63.7 MG/DL (<100); NON-HDL-C 135.9 MG/DL; TOTAL PROTEIN 6.8 G/DL (5.7-8.2)
[2023-11-23 11:44] LABS: TOTAL 25(OH) VITAMIN D 43.3 NG/ML (20.0-100.0)
[2023-11-23 12:04] LABS: HEMOGLOBIN A1c 6.2 % (4.0-6.0)
== END ==
LOC: M PLALAB 08:09
PROVIDERS: ATTEND Nurse Practitioner Family
DX: I10 Essential (primary) hypertension (principal); E55.9 Vitamin D deficiency, unspecified; E78.5 Hyperlipidemia, unspecified; R73.01 Impaired fasting glucose; R97.20 Elevated prostate specific antigen [PSA]

== ENCOUNTER → 2024-05-26 | Outpatient (CLI) | payer MEDICARE, OTHER ==
[2024-05-26 11:10] LABS: BASO # 0.1 10^3/uL (0.0-0.2); BASO % 0.9 % (0.0-1.0); EOS # 0.6 10^3/uL (0.0-0.5); HEMATOCRIT 48.1 % (42.0-52.0); HEMOGLOBIN 15.8 g/dl (13.5-17.5); LYMPH # 2.4 10^3/uL (1.5-5.0); LYMPH % 16.8 % (24.0-44.0); MEAN CORPUSCULAR HEMOGLOBIN 29.9 pg (27.0-33.0); MEAN CORPUSCULAR HGB CONC 32.8 g/dl (32.0-36.5); MEAN CORPUSCULAR VOLUME 90.9 fl (80.0-96.0); MONO # 1.1 10^3/uL (0.0-0.8); MONO % 7.8 % (2.0-8.0); NEUTROPHILS # 9.8 10^3/uL (1.5-8.5); NEUTROPHILS % 68.5 % (36.0-66.0); PLATELET COUNT, AUTOMATED 377 10^3/uL (150-450); RED BLOOD COUNT 5.29 10^6/uL (4.30-6.10); WHITE BLOOD COUNT 14.3 10^3/uL (4.0-10.0)
[2024-05-26 11:25] LABS: HEMOGLOBIN A1c 6.4 % (4.0-6.0)
[2024-05-26 11:38] LABS: ALBUMIN 3.7 G/DL (3.2-5.2); BILIRUBIN,TOTAL 0.7 MG/DL (0.3-1.2); CALCIUM LEVEL 10.1 MG/DL (8.3-10.6); CHOLESTEROL RISK RATIO 3.73 (<5); CREATININE FOR GFR 1.47 MG/DL (0.70-1.30); GLOMERULAR FILTRATION RATE 48.5 (>35); HDL CHOLESTEROL 52.5 MG/DL (>40); LDL CHOLESTEROL 86.9 MG/DL (<100); NON-HDL-C 143.5 MG/DL; POTASSIUM SERUM 4.4 MMOL/L (3.5-5.1); TOTAL PROTEIN 7.1 G/DL (5.7-8.2)
[2024-05-26 11:39] LABS: THYROID STIMULATING HORMONE 3.713 uIU/ML (0.55-4.78)
[2024-05-29 13:11] LABS: PSA FREE 2.9 ng/mL; PSA TOTAL 8.4 ng/mL (< OR = 4.0)
== END ==
LOC: M PLALAB 08:48
PROVIDERS: ATTEND Nurse Practitioner Family
DX: I10 Essential (primary) hypertension (principal); E55.9 Vitamin D deficiency, unspecified; E78.5 Hyperlipidemia, unspecified; R97.20 Elevated prostate specific antigen [PSA]; R73.01 Impaired fasting glucose

== ENCOUNTER → 2024-06-03 | Outpatient (CLI) | payer MEDICARE, OTHER | LOC: M RAD 11:30 | PROVIDERS: ATTEND Internal Medicine Pulmonary Disease | DX: J47.1 Bronchiectasis with (acute) exacerbation (principal) ==

== ENCOUNTER → 2024-06-03 | Outpatient (REF) | payer MEDICARE, OTHER ==
[2024-06-03 15:58] LABS: APPEARANCE, URINE HAZY (CLEAR); BACTERIA, URINE AUTO NEGATIVE (NEGATIVE); BILIRUBIN, URINE AUTO NEGATIVE (NEGATIVE); BLOOD, URINE BLOOD NEGATIVE (NEGATIVE); COLOR, URINE YELLOW (YELLOW); GLUCOSE, URINE (UA) AUTO NEGATIVE (NEGATIVE); KETONE, URINE AUTO NEGATIVE (NEGATIVE); LEUKOCYTE ESTERASE, URINE AUTO TRACE (NEGATIVE); MUCUS, URINE SMALL (NEGATIVE); NITRITE, URINE AUTO NEGATIVE (NEGATIVE); PROTEIN, URINE AUTO 2+ mg/dL (NEGATIVE); RBC, URINE AUTO 0 /HPF (0-3); SQUAMOUS EPITHELIAL CELL UR AU 0 /HPF (0-6); UROBILINOGEN, URINE AUTO 0.2 mg/dL (0.0-2.0); WBC, URINE AUTO 1 /HPF (0-3)
== END ==
LOC: M SFHCPLAZ 14:54
PROVIDERS: ATTEND Nurse Practitioner Family
DX: R39.9 Unspecified symptoms and signs involving the genitourinary system (principal)

== ENCOUNTER → 2024-06-16 | Outpatient (CLI) | payer MEDICARE, OTHER ==
[2024-06-19 13:57] LABS: PSA FREE 2.1 ng/mL; PSA TOTAL 5.7 ng/mL (< OR = 4.0)
== END ==
LOC: M PLALAB 14:20
PROVIDERS: ATTEND Nurse Practitioner Family
DX: R97.20 Elevated prostate specific antigen [PSA] (principal)

== ENCOUNTER → 2024-08-26 | Outpatient (CLI) | payer MEDICARE, OTHER | LOC: M RAD 12:47 | PROVIDERS: ATTEND Nurse Practitioner Family | DX: R97.20 Elevated prostate specific antigen [PSA] (principal); N40.0 Benign prostatic hyperplasia without lower urinary tract symptoms ==

== ENCOUNTER → 2024-10-01 | Outpatient (REF) | payer MEDICARE, OTHER | LOC: M LAB REF 16:30 | PROVIDERS: ATTEND Surgery | DX: C44.92 Squamous cell carcinoma of skin, unspecified (principal) ==

== ENCOUNTER → 2024-10-08 | Outpatient (REF) | payer MEDICARE, OTHER ==
[2024-10-08 16:11] LABS: APPEARANCE, URINE CLEAR (CLEAR); BACTERIA, URINE AUTO NEGATIVE (NEGATIVE); BILIRUBIN, URINE AUTO NEGATIVE (NEGATIVE); BLOOD, URINE BLOOD NEGATIVE (NEGATIVE); COLOR, URINE YELLOW (YELLOW); GLUCOSE, URINE (UA) AUTO NEGATIVE (NEGATIVE); KETONE, URINE AUTO NEGATIVE (NEGATIVE); LEUKOCYTE ESTERASE, URINE AUTO TRACE (NEGATIVE); NITRITE, URINE AUTO NEGATIVE (NEGATIVE); PROTEIN, URINE AUTO 2+ mg/dL (NEGATIVE); RBC, URINE AUTO 0 /HPF (0-3); SQUAMOUS EPITHELIAL CELL UR AU 0 /HPF (0-6); UROBILINOGEN, URINE AUTO 0.2 mg/dL (0.0-2.0); WBC, URINE AUTO 1 /HPF (0-3)
== END ==
LOC: M SMT 15:19
PROVIDERS: ATTEND Urology
DX: N32.89 Other specified disorders of bladder (principal)

== ENCOUNTER → 2024-10-23 | Outpatient (CLI) | payer MEDICARE, OTHER | LOC: M PLAIMG 13:57 | PROVIDERS: ATTEND Urology | DX: N32.89 Other specified disorders of bladder (principal) ==

== ENCOUNTER → 2024-12-24 | Outpatient (CLI) | payer MEDICARE, OTHER ==
[~2024-12-24] MED LIST changes: -PRAV20TA2; +PRAV20TA78
== END ==
LOC: M WUC 08:29
PROVIDERS: ATTEND Physician Assistant
DX: R06.02 Shortness of breath (principal)

== ENCOUNTER → 2025-03-06 | Outpatient (CLI) | payer MEDICARE, OTHER ==
[2025-03-06 11:25] LABS: BASO # 0.1 10^3/uL (0.0-0.2); BASO % 0.6 % (0.0-1.0); EOS # 0.4 10^3/uL (0.0-0.5); EOS % 3.5 % (0.0-3.0); LYMPH # 2.5 10^3/uL (1.5-5.0); LYMPH % 21.4 % (24.0-44.0); MONO # 1.0 10^3/uL (0.0-0.8); MONO % 8.9 % (2.0-8.0); NEUTROPHILS # 7.4 10^3/uL (1.5-8.5); NEUTROPHILS % 64.4 % (36.0-66.0); PLATELET COUNT, AUTOMATED 436 10^3/uL (150-450)
[2025-03-06 11:31] LABS: ESTIMATED AVERAGE GLUCOSE 137.0 MG/DL (60-110)
[2025-03-06 11:47] LABS: PSA SCREENING 4.1 NG/ML (< 4.00)
[2025-03-06 11:49] LABS: ALT/SGPT 46.0 U/L (7.0-40); AST/SGOT 37.0 U/L (<34); CALCIUM LEVEL 10.3 MG/DL (8.3-10.6); CARBON DIOXIDE LEVEL 30.0 MMOL/L (20-31); CHLORIDE LEVEL 101.0 MMOL/L (98-107); CHOLESTEROL LEVEL 159.0 MG/DL (<200); CHOLESTEROL RISK RATIO 3.47 (<5); CREATININE FOR GFR 1.32 MG/DL (0.70-1.30); GLOMERULAR FILTRATION RATE 52.5 (>35); LDL CHOLESTEROL 71.1 MG/DL (<100); MAGNESIUM LEVEL 1.9 MG/DL (1.8-2.4); NON-HDL-C 113.3 MG/DL; POTASSIUM SERUM 4.3 MMOL/L (3.5-5.1); SODIUM LEVEL 140.0 MMOL/L (136-145); TRIGLYCERIDES LEVEL 211.0 MG/DL (<150)
== END ==
LOC: M PLALAB 08:44
PROVIDERS: ATTEND Nurse Practitioner Family
DX: I10 Essential (primary) hypertension (principal); E78.5 Hyperlipidemia, unspecified; Z12.5 Encounter for screening for malignant neoplasm of prostate; E55.9 Vitamin D deficiency, unspecified; R73.01 Impaired fasting glucose
CPT/HCPCS: 36415; 80053; 80061; 82652; 83036; 83735; 85025; G0103